=== PATIENT | male | born 1975 | race Caucasian/White ===

== ENCOUNTER 2016-05-01 10:57 | Emergency (ER) | payer BC ==
[2016-05-01 11:54] VITALS: BP 153/94
--- NOTE | 2016-05-01 12:49 | UC ---
Respiratory Complaint HPI - HPI Summary HPI Summary: 1) Productive cough, wheezing, and night sweats starting about a week ago. No chills or measured fever, only brief nasal congestion. Denies hx of asthma or lung disease. 2) 4 days ago was standing up out of recliner, had coughing fit and felt pull/ tweak in low back. Having difficulty moving or doing job now. No hx of back surgery or fx, denies numbness/tingling/pain in legs, saddle area, or genitals. No trouble with bowel or bladder. - History of Current Complaint Chief Complaint: UCGeneralIllness Stated Complaint: COUGH BACK PAIN Time Seen by Provider: 05/01/16 12:14 Hx Obtained From: Patient Onset/Duration: Gradual Onset, Lasting Days Timing: Constant Severity Initially: Mild Severity Currently: Moderate Pain Intensity: 7 Pain Scale Used: 0-10 Numeric Character: Cough: Productive Aggravating Factors: Exertion, Recumbent Position Alleviating Factors: Upright Position Associated Signs And Symptoms: Positive: Wheezing, URI. Negative: Dyspnea, Fever, Chills - Allergies/Home Medications Allergies/Adverse Reactions: Allergies Allergy/AdvReac Type Severity Reaction Status Date / Time No Known Allergies Allergy Verified 05/01/16 11:43 Home Medications: Home Medications Acetaminophen [Acetaminophen Extra Stren] 1,500 mg PO Q8H PRN 05/01/16 [History Confirmed 05/01/16] [id number] [Nighttime Cold Medicine] 1 liq PO BEDTIME PRN [History Confirmed 05/01/16] PMH/Surg Hx/FS Hx/Imm Hx Previously Healthy: Yes - Surgical History Surgical History: Yes Surgery Procedure, Year, and Place: Right ACL, 2000, [facility]. LUMP REMOVED FROM LEFT WRIST AGE 3 - Family History Known Family History: Positive: Hypertension - Social History Occupation: Employed Full-time Alcohol Use: "five times a week ... a six pack" Substance Use Type: None Smoking Status (MU): Current Some Day Smoker Type: Cigarettes Amount Used/How Often: 2 CIGS A MONTH Review of Systems Constitutional: Other - sweats Skin: Negative Eyes: Negative ENT: Negative Respiratory: Cough Cardiovascular: Negative Gastrointestinal: Negative Genitourinary: Negative Motor: Negative Neurovascular: Negative Musculoskeletal: Myalgia Neurological: Negative Psychological: Negative All Other Systems Reviewed And Are Negative: Yes Physical Exam Triage Information Reviewed: Yes Appearance: Well-Appearing, Pain Distress - marked with walking, Obese Vital Signs: Initial Vital Signs Temp 97.8 F 05/01/16 11:44 Pulse 75 05/01/16 11:44 Resp 16 05/01/16 11:44 BP 153/94 05/01/16 11:44 Pulse Ox 100 05/01/16 11:44 Vital Signs Reviewed: Yes Eye Exam: Normal, Other - PERRL Eyes: Positive: Conjunctiva Clear ENT Exam: Normal ENT: Positive: Normal ENT inspection, Hearing grossly normal, Pharynx normal, TMs normal Dental Exam: Normal Neck exam: Normal Neck: Positive: Supple, Nontender, No Lymphadenopathy Respiratory: Positive: Chest non-tender, Lungs clear, Normal breath sounds, No respiratory distress, No accessory muscle use Cardiovascular Exam: Normal Cardiovascular: Positive: RRR, No Murmur Musculoskeletal: Positive: Strength Intact - strength 5/5 equal in BLE, No Edema , ROM Limited @ - back Neurological Exam: Normal Neurological: Positive: Alert, Muscle Tone Normal Psychological Exam: Normal Skin Exam: Normal UC Diagnostic Evaluation - Laboratory O2 Sat by Pulse Oximetry: 100 Respiratory Course/Dx - Differential Dx/Diagnosis Provider Diagnoses: acute bronchitis. low back strain Discharge - Discharge Plan Condition: Stable Disposition: HOME Prescriptions: Albuterol HFA INHALER* [Ventolin HFA Inhaler*] 1 - 2 puff INH Q4H PRN #1 mdi PRN Reason: wheeze, cough Cyclobenzaprine TAB* [Flexeril TAB*] 10 mg PO BID PRN #10 tab PRN Reason: Pain predniSONE TAB* [Deltasone TAB*] 50 mg PO DAILY #5 tab Patient Education Materials: Low Back Strain (ED), Lower Back Exercises (ED), Acute Bronchitis (ED) Forms: *Work Release Referrals: No Primary Care Phys,NOPCP [Primary Care Provider] - Additional Instructions: Call or return if you develop increasing fever, shortness of breath, chest pain , bloody sputum, or otherwise worsen. If you have not improved at all after several days, contact your primary care physician or return here. While you are taking the prednisone, take 400mg ibuprofen three times per day. After you stop the prednisone, if you still have pain, you can increase your ibuprofen dose to 600mg 3 times per day.
== END 2016-05-01 12:39 | disposition home or self-care (01) ==
LOC: UCCORT 10:57
DX: J40 Bronchitis, not specified as acute or chronic (principal); S39.012A Strain of muscle, fascia and tendon of lower back, initial encounter; X58.XXXA Exposure to other specified factors, initial encounter; Y93.89 Activity, other specified; Y92.9 Unspecified place or not applicable; E66.9 Obesity, unspecified; Z72.0 Tobacco use
CPT/HCPCS: 99212; G0463